=== PATIENT | female | born 1950 | race Caucasian/White ===

== ENCOUNTER 2018-04-28 20:55 | Day surgery (SDC) | payer OTHER, BC ==
--- NOTE | 2018-04-28 21:48 | EDPHY ---
H & P Stated Complaint: food stuck in throat @1999 Time Seen by Provider: 04/28/18 21:48 HPI/ROS: HPI CHIEF COMPLAINT: Possible food impaction. HISTORY OF PRESENT ILLNESS: Patient is 67-year-old female, she is visiting from [place], she has a history of hypertension, hyperlipidemia, thyroid disease she was out eating dinner tonight she had a salad with rather large Pecans, as well as pork she states while she was eating she developed what she believes to be a food impaction. States she was eating and felt something get stuck in her chest. This caused her nausea and dry heaving and retching. She tried to drink and unable to do so, so presented to the emergency room. She has never had an official food impaction before. Never had an EGD. However has had food gets stuck before. She denies any chest pain or shortness of breath. However she reports when she swallows her saliva she feels like it is getting stuck and has to spit it back up. Past Medical History: Significant medical history for hypertension, hyperlipidemia, thyroid disease Past Surgical History: No recent surgical history Social History: Visiting from [place]. Family History: Noncontributory ROS REVIEW OF SYSTEMS: 10 Systems were reviewed and negative with the exception of the elements mentioned in the history of present illness. Exam Constitutional triage nursing summary reviewed, vital signs reviewed, awake/ alert. Eyes normal conjunctivae and sclera, EOMI, PERRLA. HENT normal inspection, atraumatic, moist mucus membranes, no epistaxis, neck supple/ no meningismus, no raccoon eyes. Respiratory clear to auscultation bilaterally, normal breath sounds, no respiratory distress, no wheezing. Cardiovascular rate normal, regular rhythm, no murmur, no edema, distal pulses normal. Gastrointestinal soft, non-tender, no rebound, no guarding, normal bowel sounds, no distension, no pulsatile mass. Genitourinary no CVA tenderness. Musculoskeletal no midline vertebral tenderness, full range of motion, no calf swelling, no tenderness of extremities, no meningismus, good pulses, neurovascularly intact. Skin pink, warm, & dry, no rash, skin atraumatic. Neurologic awake, alert and oriented x 3, AAOx3, moves all 4 extremities equally, motor intact, sensory intact, CN II-XII intact, normal cerebellar, normal vision, normal speech. Psychiatric normal mood/affect. Heme/Lymph/Immune no lymphadenopathy. Differential Diagnosis: Differential diagnosis includes but is not limited to and in no particular order: Food impaction, esophageal stricture, esophagitis, achalasia, Bowel obstruction, appendicitis, gallbladder disease, diverticulitis , colitis, enteritis, perforated viscus, gastritis, GERD, esophagitis, urinary tract infection, pyelonephritis, kidney stones Medical Decision Making: Plan for this patient IV establishment IV fluid bolus IV Zofran 4 mg for nausea, IV glucagon 1 mg for possible impaction, IV Valium 2.5 mg for hopeful relaxation and possible passage of a food impaction. Re-evaluation: 2204: Dr. Rios with Gastroenterology as been consult he is in fact in the hospital will come and see the patient. 2219: Dr. Rios to take to Endoscopy suite for EGD. Patient agrees for this plan. Expect to be d/c form EGD suite. Source: Patient - Personal History Current Tetanus/Diphtheria Vaccine: Yes - Medical/Surgical History Hx Asthma: No Hx Chronic Respiratory Disease: No Hx Diabetes: No Hx Cardiac Disease: No Hx Renal Disease: No Hx Cirrhosis: No Hx Alcoholism: No Hx HIV/AIDS: No Hx Splenectomy or Spleen Trauma: No Other PMH: high cholesterol, HTN, hypothyroid - Social History Smoking Status: Never smoked Constitutional: Initial Vital Signs Temperature (C) 36.9 C 04/28/18 21:00 Heart Rate 100 04/28/18 21:00 Respiratory Rate 16 04/28/18 21:00 Blood Pressure 161/79 H 04/28/18 21:00 O2 Sat (%) 97 04/28/18 21:00 O2 Delivery Mode Room Air Allergies/Adverse Reactions: No Known Allergies Allergy (Unverified 04/28/18 21:02) Home Medications: Medication Instructions Recorded Irbesartan/Hydrochlorothiazide 04/28/18 Pravastatin Sodium 04/28/18 Synthroid 04/28/18 Medical Decision Making - Data Points Laboratory Results: Laboratory Results 04/28/18 22:00 04/28/18 22:00 Medications Given: Discontinued Medications Diazepam (Valium) 2.5 mg IVP EDNOW ONE Stop: 04/28/18 21:57 Last Admin: 04/28/18 22:17 Dose: Not Given Glucagon (Glucagon) 1 mg IVP EDNOW ONE Stop: 04/28/18 21:57 Last Admin: 04/28/18 22:18 Dose: Not Given Sodium Chloride (Ns) 1,000 mls @ 0 mls/hr IV EDNOW ONE; Wide Open PRN Reason: Protocol Stop: 04/28/18 21:57 Last Admin: 04/28/18 22:18 Dose: 1,000 mls Ondansetron HCl (Zofran) 4 mg IVP EDNOW ONE Stop: 04/28/18 21:57 Last Admin: 04/28/18 22:19 Dose: Not Given Departure - Departure Disposition: [facility] Inpatient Acute Clinical Impression: Food impaction of esophagus Qualifiers: Encounter type: initial encounter Qualified Code(s): T18.128A - Food in esophagus causing other injury, initial encounter Condition: Good
[2018-04-28] MEDS ORDERED: ONDANSETRON 4 MG/2 ML VIAL IVP ONE (21:56)
[2018-04-28] MEDS ORDERED: DIAZEPAM 5 MG/ML 1 ML SYR IVP ONE (21:56)
[2018-04-28] MEDS ORDERED: NS 1,000 ML IV ONE (21:56)
[2018-04-28] MEDS ORDERED: GLUCAGON HCL 1 MG VIAL IVP ONE (21:56)
[2018-04-28 22:15] LABS: PLATELET COUNT 201 10^3/uL (150-400)
[2018-04-28] MEDS ORDERED: LR 1,000 ML IV ONE ×2 (22:23→22:47)
[2018-04-28] MEDS ORDERED: PROPOFOL 200 MG/20 ML VIAL ONE ×2 (22:52)
[2018-04-28] MEDS ORDERED: DEXAMETHASONE 4 MG/ML VIAL ONE ×2 (23:10)
[2018-04-28] MEDS ORDERED: ONDANSETRON 4 MG/2 ML VIAL ONE (23:10)
[2018-04-28] MEDS ORDERED: ROCURONIUM 50 MG/5 ML VIAL ONE (23:10)
[2018-04-28] MEDS ORDERED: LR 500 ML IV PRN (23:17)
[2018-04-28] MEDS ORDERED: NALOXONE HCL 0.4 MG/ML INJ IVP PRN (23:17)
[2018-04-28] MEDS ORDERED: PROMETHAZINE HCL 25 MG/ML INJ IVP PRN (23:17)
[2018-04-28] MEDS ORDERED: MEPERIDINE 25 MG/0.5 ML AMP IVP PRN (23:17)
[2018-04-28] MEDS ORDERED: PHENYLEPHRINE HCL 100 MCG/ML SYR IVP PRN (23:17)
[2018-04-28] MEDS ORDERED: ONDANSETRON 4 MG/2 ML VIAL IVP PRN (23:17)
[2018-04-28] MEDS ORDERED: METOCLOPRAMIDE 10 MG/2 ML VIAL IVP PRN (23:17)
--- NOTE | 2018-04-28 23:17 | PDANEPAE ---
ANE History of Present Illness food impaction ANE Past Medical History - Cardiovascular History Hx Hypertension: Yes Hx Arrhythmias: No Hx Chest Pain: No Hx Coronary Artery / Peripheral Vascular Disease: No Hx CHF / Valvular Disease: No Hx Palpitations: No - Pulmonary History Hx COPD: No Hx Asthma/Reactive Airway Disease: No Hx Recent Upper Respiratory Infection: No Hx Oxygen in Use at Home: No Hx Sleep Apnea: No - Neurologic History Hx Cerebrovascular Accident: No Hx Seizures: No Hx Dementia: No - Endocrine History Hx Diabetes: No Hypothyroid: Yes Hyperthyroid: No Obesity: mild - Renal History Hx Renal Disorders: No - Liver History Hx Hepatic Disorders: No ANE Review of Systems Review of systems is: negative Review of Systems: - Exercise capacity Exercise capacity: >=4 METS ANE Patient History - Allergies Allergies/Adverse Reactions: No Known Allergies Allergy (Unverified 04/28/18 21:02) - Home Medications Home Medications: Irbesartan/Hydrochlorothiazide 04/28/18 [Last Taken Unknown] Pravastatin Sodium 04/28/18 [Last Taken Unknown] Synthroid 04/28/18 [Last Taken Unknown] - NPO status NPO Since - Liquids (Date): 04/28/18 NPO Since - Liquids (Time): 19:00 NPO Since - Solids (Date): 04/28/18 NPO Since - Solids (Time): 19:00 - Anes Hx Anes Hx: no prior problems - Smoking Hx Smoking Status: Never smoked - Family Anes Hx Family Anes Hx: none ANE Labs/Vital Signs - Labs Result Diagrams: 04/28/18 22:00 04/28/18 22:00 - Vital Signs Vital Signs: reviewed preoperatively; see RN documention for details Blood Pressure: 155/83 Heart Rate: 89 Respiratory Rate: 20 O2 Sat (%): 94 Height: 162.56 cm Weight: 81.647 kg ANE Physical Exam - Airway Neck exam: FROM Mallampati Score: Class 2 Mouth exam: normal dental/mouth exam, small mouth opening - Pulmonary Pulmonary: no respiratory distress - Cardiovascular Cardiovascular: regular rate and rhythym - ASA Status ASA Status: II, E ANE Anesthesia Plan Anesthesia Plan: general endotracheal anesthesia Urgent/Emergent Case: Jose Angel ybarra completed preop but documented later for safe timely pt care (RSI 2/2 food impaction)
--- NOTE | 2018-04-28 23:34 | GIREPORT ---
[facility] - Endoscopy Department Patient Name: Marge Neal Procedure Date: 04/28/2018 10:53 PM Patient Type: Outpatient Attending MD/ ER Physician: Jean-Claude Rios MD Procedure: Upper GI endoscopy Indications: Dysphagia, Foreign body in the esophagus Providers: Jean-Claude Rios MD Medicines: General Anesthesia Complications: No immediate complications. Estimated blood loss: Minimal. Description of Procedure: After obtaining informed consent, the endoscope was passed under direct vision. Throughout the procedure, the patient's blood pressure, pulse, and oxygen saturations were monitored continuously. The Endoscope was intro duced through the mouth, and advanced to the third part of duodenum. The uppe r GI endoscopy was accomplished without difficulty. The patient tolerated th e procedure well. Findings: Food was found in the lower third of the esophagus. Removal was accompl ished with a pushing food into stomach with scope. Estimated blood loss was minimal. One benign-appearing, intrinsic stenosis was found at the gastroesophag eal junction. This stenosis was moderately severe and measured less than on e cm (in length). The stenosis was traversed. A TTS dilator was passed throu gh the scope. Dilation with a 12-13.5-15 mm x 5.5 cm CRE balloon and a 15-16.5-18 mm x 5.5 cm CRE balloon dilator was performed to 18 mm. The dilation site was examined and showed moderate improvement in luminal narrowing. Estimated blood loss was minimal. The upper third of the esophagus and lower third of the esophagus were normal. Biopsies were obtained from the proximal and distal esophagus w ith cold forceps for histology of suspected eosinophilic esophagitis. Estim ated blood loss was minimal. Multiple small semi-sessile polyps with no bleeding and no stigmata of recent bleeding were found in the gastric body. These polyps were remov ed with a cold biopsy forceps. Resection and retrieval were complete. Marleen mated blood loss was minimal. Scattered moderate mucosal changes characterized by congestion and eryt sathish were found in the entire duodenum. Biopsies were taken with a cold for eps for histology. Estimated blood loss was minimal. The exam was otherwise without abnormality. Estimated Blood Loss: Estimated blood loss was minimal. Post Op Diagnosis: - Food was found in the esophagus. Removal was successful. - Benign-appearing esophageal stenosis. Dilated. - Normal upper third of esophagus and lower third of esophagus. Biopsie d. TUG sign in lower esophagus, query PPI responsive EoE? - Multiple gastric polyps. Resected and retrieved. Suspect fundic gland polyps - Mucosal changes in the duodenum. Biopsied. - The examination was otherwise normal. Recommendation: - Await pathology results. - My office will call with the pathology result with 5-7 days. If you h ave not heard from my office by 14, do not assume the pathology is drake l, please call [phone] to get the pathology results. - Use Protonix (pantoprazole) 40 mg PO daily for 3 months (maybe longer pending clinical course). Take 30-60 minutes before breakfast. - Follow an antireflux regimen. - Cut food into small pieces and chew well. - Discharge patient to home (ambulatory). - Return to primary care physician as previously scheduled. - Repeat upper endoscopy in 8 weeks to evaluate the response to therapy . If she hs increased eosinophilia in distal esophagus that resolves with PP I therapy, she likely has PI responsive EOE. If no significant eosinophil ia noted then her issue is acid reflux. - Thank you for allowing me to help in your patient's care. Do not hesi aguilar to call with any questions. Attending Participation: I personally performed the entire procedure. Blanca Quezada M.D Jean-Claude Rios MD 04/28/2018 11:33:54 PM This report has been signed electronicallyMatthew MD Blanca Number of Addenda: 0 Note Initiated On: 04/28/2018 10:53 PM [email or web address]
[2018-04-29 00:32] VITALS: BP 141/102
--- NOTE | 2018-04-29 07:21 | POSTANESTH ---
Post Anesthetic Evaluation Cardiovascular Status: Normal, Stable Respiratory Status: Normal, Stable Level of Consciousness/Mental Status: Can Participate in Eval Pain Control: Adequate, Prn Tx Ordered Nausea/Vomiting Control: Adequate, Prn Tx Ordered Complications Possibly Related to Anesthesia: None Noted
--- NOTE | 2018-04-29 08:09 | GCON ---
[f rep st] CONSULTATION DATE OF CONSULTATION: 04/28/2018 REQUESTING PHYSICIAN: aLrry Martínez MD. INDICATION FOR CONSULTATION: Foreign body and history of dysphagia. HISTORY OF PRESENT ILLNESS: I have been asked by Dr. Martínez to see Mrs. Neal in consultation for a chief complaint of foreign body. She has had a history of intermittent dysphagia for a number of years with food eventually passing even if it gets lodged. It usually passes quite quickly with just a sip of water. Today, she was visiting from [place] and eating a salad with rather large pecans and some pork when she developed a food impaction. She has not been able to tolerate her saliva since then and she feels that the food and material is stuck in her esophagus. She is not complaining of any significant heartburn or regurgitation symptoms. She does not know of any significant allergies, either hay fever or food allergies. As noted above, she has had intermittent episode of dysphagia and has never had an EGD. She is now here in the emergency room with a foreign body. I am called to help and treat that. PAST MEDICAL HISTORY: Hypertension, hyperlipidemia, thyroid disease, intermittent dysphagia. PAST SURGICAL HISTORY: None. MEDICATIONS: At home include Synthroid 88 mcg, pravastatin 40 mg, and irbesartan and hydrochlorothiazide 300/12.5. ALLERGIES: NKDA SOCIAL HISTORY: She does not smoke. She drinks about a glass of wine with the dinner in the evenings. FAMILY HISTORY: Mother had some type of stomach cancer at age 62. Brother had a bone cancer. REVIEW OF SYSTEMS: A complete review of systems performed and is negative other than HPI. PHYSICAL EXAM: GENERAL: Well developed, well nourished, sitting in her bed, unable to tolerate her saliva. VITAL SIGNS: Blood pressure 100/83, pulse 83, respirations 18, 95% on room air, temperature 36.9. EYES: Anicteric. JERRELL, EOMI. MOUTH: No lesions. Moist membranes. NECK: Supple. Full range of motion. No JVD. BACK: No spine tenderness. No CVA tenderness. LUNGS: Clear. CARDIAC: S1, S2. Regular rate and rhythm. No murmurs, rubs or gallops appreciated. ABDOMEN: Bowel sounds are normal in pitch and frequency. ABDOMEN: Soft, nontender, no hepatosplenomegaly. EXTREMITIES: No cyanosis, clubbing, or edema. NEUROLOGIC: Cranial nerves intact, nonfocal. SKIN: No stigmata of advanced liver disease. IMAGING: Chest x-ray performed today showed hypoventilation chest with mild interstitial prominence that could be related to bronchiolitis, air disease or other etiology. LABORATORY STUDIES: From today, WBC 7.59, hemoglobin 15.1, hematocrit 46.0, platelet count 201. Sodium 141, potassium 4.2, chloride 101, bicarb 28, BUN 16 , creatinine 0.7, glucose 110, calcium 10.2. ASSESSMENT: 1. Foreign body. 2. Intermittent dysphagia without history of reflux. 3. Hypertension. 4. Thyroid disease. RECOMMENDATIONS: 1. Urgent EGD with anesthesia for foreign body and evaluation of longstanding dysphagia, query reflux esophagitis or more likely eosinophilic esophagitis with no significant symptoms. 2. Further recommendations to follow results of above. 3. Whether it is the EOE or acid reflux, I will recommend a proton pump inhibitor. For EOE, it would be for 8 weeks, for acid reflux it would probably be longer. If the findings are consistent with EOE, I would recommend that she see an assistant paralegal when she gets back to [place] and have further evaluation. My usual recommendation is PPI for 8 weeks and a repeat EGD to see if this is PPI responsive EOE. If it i not and continues despite allergy avoidance, then to use fluticasone (swallowed not inhaled). Thank you for allowing me to participate in the patient's healthcare. Do not hesitate to call me with any questions. /[id number]/MODL MTDD
== END 2018-04-29 00:33 | disposition home or self-care (01) ==
LOC: FSGY 22:40
PROVIDERS: ATTEND Internal Medicine Gastroenterology
DX: T18.128A Food in esophagus causing other injury, initial encounter (principal); K20.0 Eosinophilic esophagitis; K29.80 Duodenitis without bleeding; K31.7 Polyp of stomach and duodenum; I10 Essential (primary) hypertension; E78.5 Hyperlipidemia, unspecified; E07.9 Disorder of thyroid, unspecified
CPT/HCPCS: 43239; 43247; 43249; 71045; C1726; J1100; J1610; J2405; J2704; J3360